=== PATIENT | female | born 1995 | race Caucasian/White ===

== ENCOUNTER 2019-03-10 20:56 | Emergency (ER) | payer OTHER ==
--- NOTE | 2019-03-10 21:22 | ER Document Report ---
ED ENT - General Chief Complaint: Sore Throat Stated Complaint: SORE THROAT Time Seen by Provider: 03/10/19 21:13 Primary Care Provider: ALEE KRUEGER MD [Primary Care Provider] - Follow up as needed Mode of Arrival: Ambulatory Information source: Patient Notes: 23-year-old female presented to ED for runny nose cough congestion sore throat for 2 days. She states she has not had any fevers. States her throat is pretty sore. She is alert oriented respirations regular and unlabored speaking in full sentences. TRAVEL OUTSIDE OF THE [place] IN LAST 30 DAYS: No - HPI Patient complains to provider of: Nose problem, Throat problem Onset: Other - 2 days Onset/Duration: Gradual Quality of pain: Achy, Sharp Severity: Moderate Pain Level: 2 Location of pain: Nose, Throat Associated symptoms: Runny nose, Sinus drainage - Thank you, Sore throat Similar symptoms previously: Yes Recently seen / treated by doctor: No - Related Data Allergies/Adverse Reactions: No Known Allergies Allergy (Unverified 03/10/19 22:34) Past Medical History - General Information source: Patient - Social History Smoking Status: Never Smoker Cigarette use (# per day): No Chew tobacco use (# tins/day): No Smoking Education Provided: No Frequency of alcohol use: None Drug Abuse: None Lives with: Family Family History: Reviewed & Not Pertinent Patient has suicidal ideation: No Patient has homicidal ideation: No - Past Medical History Cardiac Medical History: Reports: None Pulmonary Medical History: Reports: None EENT Medical History: Reports: None Neurological Medical History: Reports: None Endocrine Medical History: Reports: None Renal/ Medical History: Reports: None Malignancy Medical History: Reports: None GI Medical History: Reports: None Musculoskeletal Medical History: Reports None Skin Medical History: Reports None Psychiatric Medical History: Reports: Hx Bipolar Disorder, Hx Depression, Hx Post Traumatic Stress Disorder Traumatic Medical History: Reports: None Infectious Medical History: Reports: None Past Surgical History: Reports: Hx Oral Surgery - [place] teeth - Immunizations Immunizations up to date: Yes Hx Diphtheria, Pertussis, Tetanus Vaccination: Yes Review of Systems - Review of Systems Constitutional: Recent illness EENT: Nose discharge, Sinus discharge, Throat pain Cardiovascular: No symptoms reported Respiratory: No symptoms reported Gastrointestinal: No symptoms reported Genitourinary: No symptoms reported Female Genitourinary: No symptoms reported Musculoskeletal: No symptoms reported Skin: No symptoms reported Hematologic/Lymphatic: No symptoms reported Neurological/Psychological: No symptoms reported -: Yes All other systems reviewed and negative Physical Exam - Vital signs Vitals: Temp Pulse Resp BP Pulse Ox 98.1 F 66 18 126/67 H 99 03/10/19 21:23 03/10/19 21:23 03/10/19 21:23 03/10/19 21:23 03/10/19 21:23 Interpretation: Normal - General General appearance: Appears well, Alert - HEENT Head: Normocephalic, Atraumatic Eyes: Normal Pupils: PERRL Ears: Normal External canal: Normal Tympanic membrane: Normal Sinus: Normal Nasal: Purulent discharge, Swelling Mouth/Lips: Normal Mucous membranes: Normal Pharynx: Erythema, Post nasal drainage Neck: Normal - Respiratory Respiratory status: No respiratory distress Chest status: Nontender Breath sounds: Normal Chest palpation: Normal - Cardiovascular Rhythm: Regular Heart sounds: Normal auscultation Murmur: No - Abdominal Inspection: Normal Distension: No distension Bowel sounds: Normal Tenderness: Nontender Organomegaly: No organomegaly - Back Back: Normal, Nontender - Extremities General upper extremity: Normal inspection, Nontender, Normal color, Normal ROM, Normal temperature General lower extremity: Normal inspection, Nontender, Normal color, Normal ROM, Normal temperature, Normal weight bearing. No: Scott's sign - Neurological Neuro grossly intact: Yes Cognition: Normal Orientation: AAOx4 Wainwright Coma Scale Eye Opening: Spontaneous Cullen Coma Scale Verbal: Oriented Cullen Coma Scale Motor: Obeys Commands Wainwright Coma Scale Total: 15 Speech: Normal Motor strength normal: LUE, RUE, LLE, RLE Sensory: Normal - Psychological Associated symptoms: Normal affect, Normal mood - Skin Skin Temperature: Warm Skin Moisture: Dry Skin Color: Normal Course - Re-evaluation Re-evalutation: 03/10/19 22:30 After performing a Medical Screening Examination, I estimate there is LOW risk for ACUTE CORONARY SYNDROME, RESPIRATORY FAILURE, SEPSIS OR MENINGITIS, thus I consider the discharge disposition reasonable. I have reevaluated this patient multiple times and no significant life threatening changes are noted. The patient and I have discussed the diagnosis and risks, and we agree with discharging home with close follow-up. We also discussed returning to the Emergency Department immediately if new or worsening symptoms occur. We have discussed the symptoms which are most concerning (e.g., changing or worsening pain, trouble swallowing or breathing, neck stiffness, fever) that necessitate immediate return. - Vital Signs Vital signs: Temp Pulse Resp BP Pulse Ox 98.3 F 67 18 114/68 99 03/10/19 22:34 03/10/19 22:34 03/10/19 22:34 03/10/19 22:34 03/10/19 22:34 Discharge - Discharge Clinical Impression: Viral sore throat URI (upper respiratory infection) Qualifiers: URI type: unspecified viral URI Qualified Code(s): J06.9 - Acute upper respi ratory infection, unspecified Condition: Stable Disposition: HOME, SELF-CARE Additional Instructions: SORE THROAT: Sore throats may be caused by viruses, bacteria, or fungi. Most are due to a virus, and must get better on their own. Bacterial sore throats, particularly those due to "strep," need treatment with antibiotics. If an antibiotic is prescribed, be sure to take the medication for a full 10 days. Failure to take the antibiotic can result in complications such as rheumatic fever. Sometimes, an injection of antibiotics is given instead of pills or liquid. This single "shot" is equal in effectiveness to the oral medication. To relieve symptoms, take acetaminophen for pain. Sip clear liquids frequently, or eat popsicles or ice chips. Anesthetic sprays or lozenges may help. Make sure the air in the room is not too dry. Avoid using decongestants or antihistamines. Call the doctor if there is no improvement in two days, or if you have difficulty breathing, increasing throat pain, high fever, rash, or frequent vomiting. UPPER RESPIRATORY ILLNESS: You have a viral infection of the respiratory passages -- a "cold." This common infection causes nasal congestion, drainage, and often sore throat and cough. It is highly contagious. The disease usually lasts about 10 to 14 days. There is no "cure" for the viral infection -- it must run its course. If there is a complication, such as bacterial infection in the nose, sinuses, middle ear, or bronchial tubes, antibiotics may be required. The antibiotics won't affect the virus. Drink plenty of fluids. A humidifier may help. An expectorant medication or decongestant may make you more comfortable. Use acetaminophen or ibuprofen for fever or aches. See the doctor if fever persists over two days, if there is any significant worsening of your symptoms, or if you simply fail to improve as expected. DECONGESTANT MEDICATION: A decongestant medicine has been suggested. Often this medicine is combined in the same tablet with an antihistamine or expectorant. This type of medicine is helpful in treating a bad cold or sinus condition, as well as in treatment of the nasal congestion of hay fever. It is not of much benefit for lung infections. Decongestant medicines are related to stimulants. They can cause an increase in blood pressure and heart rate. Persons with heart disease and high blood pressure should not take decongestants without discussing this with the physician. If you develop palpitations, chest pain, headache, or tremors, stop the medicine and consult your physician. COUGH-SUPPRESSANT & EXPECTORANT MEDICATION: You are to use a cough medication as needed for relief of symptoms. This medicine is a combination of an expectorant (to make the mucous thinner and more easily "coughed up") and a cough suppressant (to reduce the frequency of coughing). The cough-suppressant medicine is related to narcotics. You may experience mild nausea and sleepiness. Some patients who are very sensitive to narcotics may have stomach pain from this medicine. Taking the medicine with food reduces these side effects. Do not drive or work with machinery until you know how this medicine affects you. The expectorant should have no side effects. Iodine-containing expectorants (such as organidin) should not be taken by persons with active thyroid disease unless approved by your doctor. Call the doctor if you develop shortness of breath, hives, rash, itching, lightheadedness, or severe nausea and vomiting. USE OF ACETAMINOPHEN (Tylenol): Acetaminophen may be taken for pain relief or fever control. It's much safer than aspirin, offering a wider range of "safe" dosages. It is safe during . Some brand names are Tylenol, Panadol, Datril, Anacin 3, Tempra, and Liquiprin. Acetaminophen can be repeated every four hours. The following are maximum recommended dosages: >89 pounds or adults 650 mg to 900 mg Acetaminophen can be repeated every four hours. Maximum dose not to exceed 4000 mg a day. You can use Claritin 10 mg Sudafed 30 mg Mucinex 600 mg ibuprofen 600 mg or Tylenol 650 mg for your cough cold congestion. Flonase nasal spray 2 sprays each nostril each day as well as salt and soda solution will help with your cough and cold symptoms also Chloraseptic spray which is [id number] can help with your symptoms. Salt and soda solution 1 quart of water 1 tablespoon of salt 1 teaspoon of baking soda Mixed 3 ingredients together and boil for 1 minute Placed in a covered quart jar Use 1/2 ounce of cold solution to gargle 3 times a day FOLLOW-UP CARE: If you have been referred to a physician for follow-up care, call the physicians office for an appointment as you were instructed or within the next two days. If you experience worsening or a significant change in your symptoms, notify the physician immediately or return to the Emergency Department at any time for re-evaluation. Referrals: ALEE KRUEGER MD [Primary Care Provider] - Follow up as needed
[2019-03-10 22:34] VITALS: BP 114/68
== END 2019-03-10 22:35 | disposition home or self-care (01) ==
LOC: ER 20:56
DX: J06.9 Acute upper respiratory infection, unspecified (principal); J02.9 Acute pharyngitis, unspecified; B97.89 Other viral agents as the cause of diseases classified elsewhere; R09.89 Other specified symptoms and signs involving the circulatory and respiratory systems; R09.81 Nasal congestion
CPT/HCPCS: 87070; 87880; 99283

== ENCOUNTER → 2019-12-02 | Outpatient (CLI) | payer OTHER ==
--- NOTE | 2019-12-02 14:51 | RADIOLOGY REPORT (SQ) ---
EXAM DESCRIPTION: HYSTEROSALPINGOGRAM; HYSTERO CATH/INJECTION IMAGES COMPLETED DATE/TIME: 12/02/2019 2:12 pm REASON FOR STUDY: N97.9 FEMALE INFERTILITY, UNSPECIFIED N97.9 FEMALE INFERTILITY, UNSPECIFIED COMPARISON: None. PROCEDURE: PRE-PROCEDURE: Procedure was explained to the patient. She was told to expect cramping du ring the procedure, and possible spotting post procedure. PROCEDURE: The cervix was prepped in sterile fashion. Under direct visual inspection, the cervix was cannulated with the hysterosalpingogram catheter and contrast injected. TECHNIQUE: Temporal fluoroscopic images acquired during the procedure stored to PACS. FLUOROSCOPY TIME: 14 seconds. 3 images saved to PACS. LIMITATIONS: None. FINDINGS: UTERUS: No identified anomalies. No synechia. RIGHT ADNEXA: Normal size fallopian tube. Free spill of contrast into the peritoneal cavity. LEFT ADNEXA: Normal size fallopian tube. Free spill of contrast into the peritoneal cavity. POST PROCEDURE: The patient tolerated the procedure with no adverse effects. IMPRESSION: NORMAL HYSTEROSALPINGOGRAM. COMMENT: There was an adhesion in the cervical os which was reduced with careful dilation before the catheter could be positioned. Study performed by and interpreted by the radiologist. Quality ID [id number]: Final reports for procedures using fluoroscopy that document radiation exposure get ramona, or exposure time and number of fluorographic images (if radiation exposure indices are not avail able) TECHNICAL DOCUMENTATION: JOB ID: [id number] 2010 [employer]- All Rights Reserved Reading location - IP/workstation name: [email or web address]
== END ==
LOC: RAD 12:51
PROVIDERS: ATTEND Obstetrics & Gynecology Obstetrics
DX: N97.9 Female infertility, unspecified (principal)
CPT/HCPCS: 58340; 74740